=== PATIENT | male | born 1975 ===

== ENCOUNTER 2016-07-02 18:43 | Emergency (ER) | payer OTHER ==
[2016-07-02 18:48] VITALS: BP 135/90
--- NOTE | 2016-07-02 19:27 | Emergency Department Report ---
- General Chief Complaint: Skin/Abscess/Foreign Body Stated Complaint: KNOT ON RT LEG Time Seen by Provider: 07/02/16 19:23 Source: patient, family Mode of arrival: Ambulatory Limitations: No Limitations - History of Present Illness Initial Comments: 40-year-old male significant past medical history presents with complaint of small warm tender area to the right lateral calf region. Patient states that approximately a day ago he saw a pimple on his right calf burst it at home in bathroom and area became progressively redder and more sensitive and painful. Patient denies any fever or chills no difficulty walking denies any deep tenderness and calf pain is strictly superficial on skin. Visibly pointing to well-demarcated red area on the superficial skin right lateral calf region Onset/Timin -: days(s) Location: other (RLE, right mid calf region) Extremity Location: Right: Lower Leg 1 - small area of cellulitis, about 5cm diameter, erythematous, painful to touch, well demarcated Place: home Patient Tetanus UTD: Yes Associated Symptoms: none Treatments Prior to Arrival: cold therapy - Related Data Previous Rx's Medication Instructions Recorded Last Taken Type Cephalexin [Keflex] 500 mg PO Q12HR #14 cap 07/02/16 Unknown Rx Ibuprofen [Motrin] 600 mg PO Q8H PRN #25 tablet 07/02/16 Unknown Rx Sulfamethoxazole/Trimethoprim 1 each PO BID #14 tablet 07/02/16 Unknown Rx [Bactrim DS TAB] Allergies Allergy/AdvReac Type Severity Reaction Status Date / Time No Known Allergies Allergy Unverified 07/02/16 18:45 ED Review of Systems ROS: Stated complaint: KNOT ON RT LEG Other details as noted in HPI ED Past Medical Hx - Past Medical History Previous Medical History?: No - Surgical History Past Surgical History?: No - Social History Smoking Status: Current Every Day Smoker Substance Use Type: None - Medications Home Medications: Home Medications Medication Instructions Recorded Confirmed Last Taken Type Cephalexin [Keflex] 500 mg PO Q12HR #14 cap 07/02/16 Unknown Rx Ibuprofen [Motrin] 600 mg PO Q8H PRN #25 tablet 07/02/16 Unknown Rx Sulfamethoxazole/Trimethoprim 1 each PO BID #14 tablet 07/02/16 Unknown Rx [Bactrim DS TAB] ED Physical Exam - General Limitations: No Limitations General appearance: alert, in no apparent distress - Head Head exam: Present: atraumatic, normocephalic - Eye Eye exam: Present: normal appearance, PERRL, EOMI - ENT ENT exam: Present: mucous membranes moist - Neck Neck exam: Present: normal inspection - Respiratory Respiratory exam: Present: normal lung sounds bilaterally. Absent: respiratory distress - Cardiovascular Cardiovascular Exam: Present: regular rate, normal rhythm. Absent: systolic murmur, diastolic murmur, rubs, gallop - GI/Abdominal GI/Abdominal exam: Present: soft, normal bowel sounds - Rectal Rectal exam: Present: deferred - Extremities Exam Extremities exam: Present: normal inspection - Expanded Lower Extremity Exam Right Hip exam: Present: normal inspection, full ROM Upper Leg exam: Present: normal inspection, full ROM Knee exam: Present: normal inspection, full ROM Lower Leg exam: Present: full ROM, tenderness (small well demarcated 5cm area of induration right mid lateral calf region, palpable induration but no fluctuance), erythema Ankle exam: Present: normal inspection, full ROM - Back Exam Back exam: Present: normal inspection - Neurological Exam Neurological exam: Present: alert, oriented X3 - Psychiatric Psychiatric exam: Present: normal affect, normal mood - Skin Skin exam: Present: warm, dry, intact, normal color. Absent: rash ED Course Vital Signs 07/02/16 18:45 Temperature 98.4 F Pulse Rate 90 Respiratory 18 Rate Blood Pressure 135/90 O2 Sat by Pulse 97 Oximetry ED Medical Decision Making - Medical Decision Making A/P: RLE cellulitis 1- Bactrim and keflex BID x 7 days 2- Motrin PRN for pain 3- I did bedside US using flat probe to search for any discreet pockets of pus/ anechoic or hypoechoic areas underneath skin where cellulitis present, none seen. No indication for I&D at this time. 4- I advised pt to return to the ED if redness/erythema/induration spreads beyond marked borders or if pain worsens despite ABX and NSIAD use. Pt expressed clear understanding of instructions. Pt does no have PMD, will refer him to one. Critical care attestation.: If time is entered above; I have spent that time in minutes in the direct care of this critically ill patient, excluding procedure time. ED Disposition Clinical Impression: Cellulitis of right lower extremity Disposition: DISCHARGED TO HOME OR SELFCARE Is pt being admited?: No Does the pt Need Aspirin: No Condition: Stable Instructions: Cellulitis (ED) Prescriptions: Cephalexin [Keflex] 500 mg PO Q12HR #14 cap Ibuprofen [Motrin] 600 mg PO Q8H PRN #25 tablet PRN Reason: Pain Sulfamethoxazole/Trimethoprim [Bactrim DS TAB] 1 each PO BID #14 tablet Referrals: SHEREE THORNTON MD [Staff Physician] - 3-5 Days [facility] [Outside] - 3-5 Days Forms: Accompanied Note Time of Disposition: 19:28
== END 2016-07-02 19:58 | disposition home or self-care (01) ==
LOC: ED 18:43
DX: L03.115 Cellulitis of right lower limb (principal); F17.200 Nicotine dependence, unspecified, uncomplicated
CPT/HCPCS: 99282

== ENCOUNTER 2016-07-08 16:30 | Emergency (ER) | payer OTHER ==
[2016-07-08 16:50] VITALS: BP 149/90
[2016-07-08] MEDS ORDERED: MOTRIN PO ONE (17:21)
[2016-07-08 17:58] LABS: Anion Gap 19 mmol/L; BUN/Creatinine Ratio 10.83; Blood Urea Nitrogen 13 mg/dL (9-20); Calcium 8.9 mg/dL (8.4-10.2); Carbon Dioxide 25 mmol/L (22-30); Chloride 95.7 mmol/L (98-107); Glucose 80 mg/dL (75-100); Potassium 4.8 mmol/L (3.6-5.0); Sodium 135 mmol/L (137-145)
[2016-07-08 18:03] LABS: Hematocrit 43.8 % (35.5-45.6); Hemoglobin 14.8 gm/dl (11.8-15.2); Mean Corpuscular HGB Conc 34 % (32-34); Mean Corpuscular Hemoglobin 30 pg (28-32); Mean Corpuscular Volume 89 fl (84-94); Platelet Count 307 K/mm3 (140-440); Red Cell Distribution Width 13.1 % (13.2-15.2); White Blood Count 9.5 K/mm3 (4.5-11.0)
--- NOTE | 2016-07-08 18:11 | Emergency Department Report ---
<JOHANNE KELSEY - Last Filed: 07/08/16 19:33> - General Chief complaint: Skin/Abscess/Foreign Body Stated complaint: RT LEG INFECTION Time Seen by Provider: 07/08/16 16:55 - Related Data Previous Rx's Medication Instructions Recorded Last Taken Type Cephalexin [Keflex] 500 mg PO Q12HR #14 cap 07/02/16 Unknown Rx Ibuprofen [Motrin] 600 mg PO Q8H PRN #25 tablet 07/02/16 Unknown Rx Sulfamethoxazole/Trimethoprim 1 each PO BID #14 tablet 07/02/16 Unknown Rx [Bactrim DS TAB] Acetaminophen/Codeine [Tylenol #3] 1 tab PO Q6H PRN #14 tab 07/08/16 Unknown Rx Clindamycin [Clindamycin CAP] 600 mg PO BID #20 capsule 07/08/16 Unknown Rx Allergies Allergy/AdvReac Type Severity Reaction Status Date / Time No Known Allergies Allergy Unverified 07/02/16 18:45 Abscess Boil HPI - HPI Chief Complaint: Skin/Abscess/Foreign Body Stated Complaint: RT LEG INFECTION Time Seen by Provider: 07/08/16 16:55 Home Medications: Previous Rx's Medication Instructions Recorded Last Taken Type Cephalexin [Keflex] 500 mg PO Q12HR #14 cap 07/02/16 Unknown Rx Ibuprofen [Motrin] 600 mg PO Q8H PRN #25 tablet 07/02/16 Unknown Rx Sulfamethoxazole/Trimethoprim 1 each PO BID #14 tablet 07/02/16 Unknown Rx [Bactrim DS TAB] Acetaminophen/Codeine [Tylenol #3] 1 tab PO Q6H PRN #14 tab 07/08/16 Unknown Rx Clindamycin [Clindamycin CAP] 600 mg PO BID #20 capsule 07/08/16 Unknown Rx Allergies/Adverse Reactions: Allergies Allergy/AdvReac Type Severity Reaction Status Date / Time No Known Allergies Allergy Unverified 07/02/16 18:45 ED Review of Systems ROS: Stated complaint: RT LEG INFECTION Other details as noted in HPI ED Past Medical Hx - Medications Home Medications: Home Medications Medication Instructions Recorded Confirmed Last Taken Type Cephalexin [Keflex] 500 mg PO Q12HR #14 cap 07/02/16 Unknown Rx Ibuprofen [Motrin] 600 mg PO Q8H PRN #25 tablet 07/02/16 Unknown Rx Sulfamethoxazole/Trimethoprim 1 each PO BID #14 tablet 07/02/16 Unknown Rx [Bactrim DS TAB] Acetaminophen/Codeine [Tylenol #3] 1 tab PO Q6H PRN #14 tab 07/08/16 Unknown Rx Clindamycin [Clindamycin CAP] 600 mg PO BID #20 capsule 07/08/16 Unknown Rx ED Course Vital Signs 07/08/16 07/08/16 07/08/16 16:42 17:33 19:12 Temperature 98.9 F Pulse Rate 103 H 73 Respiratory 18 16 18 Rate Blood Pressure 149/90 Blood Pressure 149/90 [Left] O2 Sat by Pulse 97 97 Oximetry - I & D Right Lower Lateral Distal Leg Type of Procedure: Simple Blade Size: 11 I & D Procedure: betadine prep, sterile drapes applied, sterile dressing applied Progress: Patient positioned appropriately, 15cc lidocaine without epinephrine was used as a local anesthetic. #11 blade scalpal used for single incision. Additional local anesthetic injected into surrounding viable tissue prior to blunt dissection of loculated adhesions. Copius drainage of pus (culture obtained). Wound packed with iodoform gauze. Procedure tolerated without complications. Wound dressed with sterile 4x4 guaze and paper tape. Pt tolerated procedure well. ED Medical Decision Making - Lab Data Result diagrams: 07/08/16 17:31 07/08/16 17:31 Critical care attestation.: If time is entered above; I have spent that time in minutes in the direct care of this critically ill patient, excluding procedure time. ED Disposition Clinical Impression: Abscess of leg, right, Cellulitis and abscess of leg Disposition: DISCHARGED TO HOME OR SELFCARE Condition: Stable Instructions: Cellulitis (ED), Abscess (ED) Additional Instructions: Return to ED in 2 days for inspection and iodoform removal Take antibiotics as prescribed. Prescriptions: Acetaminophen/Codeine [Tylenol #3] 1 tab PO Q6H PRN #14 tab PRN Reason: Pain Clindamycin [Clindamycin CAP] 600 mg PO BID #20 capsule Referrals: [facility]Outside] - 3-5 Days [facility] [Outside] - 3-5 Days [facility], [Primary Care Provider] - 3-5 Days Forms: Work/School Release Form(ED) <ANA CHOUDHARY - Last Filed: 07/14/16 23:52> - General Source: patient Mode of arrival: Ambulatory Limitations: No Limitations - History of Present Illness Initial comments: 40-year-old male comes in for a ball on his right calf. Patient was recently seen on 07/02/2016 and placed on Bactrim and Keflex for cellulitis. Patient comes in today for worsening of the bowl increased redness and drainage and painful to walk. Patient reports he has been compliant in taking all medications. Has no past medical history currently takes no meds besides the antibiotics as prescribed. ED Past Medical Hx - Past Medical History Previous Medical History?: No - Surgical History Past Surgical History?: No - Social History Smoking Status: Current Some Day Smoker Substance Use Type: None ED Physical Exam - General Limitations: No Limitations General appearance: alert, in no apparent distress - Head Head exam: Present: atraumatic, normocephalic - Skin Skin exam: Present: warm, dry, intact, erythema (lesion that's very tender to touch and warm to feel. Located on the right lateral aspect of the lower leg) ED Medical Decision Making - Lab Data Result diagrams: 07/08/16 17:31 07/08/16 17:31 - Radiology Data Radiology results: image reviewed FINAL REPORT EXAM: US EXTREMITY NONVASCULAR RT HISTORY: r/o abscess TECHNIQUE: Multiple grayscale sonographic images were obtained of the superficial soft tissues of the right calf. PRIORS: None. FINDINGS: There is a complex collection in the subcutaneous tissues in the area of interest that measures approximately 1.5 x 0.8 x 2.1 centimeters. IMPRESSION: 1. Heterogeneous collection in the subcutaneous tissues may represent phlegmon or abscess given the history provided. Transcribed By: KWAKU Dictated By: VIKRAM GORDON MD Electronically Authenticated By: VIKRAM GORDON MD Signed Date/Time: 07/08/161956 - Medical Decision Making Patient is given ibuprofen 800 mg. We will do an ultrasound of the leg. Based on results of the ultrasound would decide if patient is to be admitted for outpatient medication failure. ED Disposition Is pt being admited?: No Does the pt Need Aspirin: No
--- NOTE | 2016-07-08 19:00 | Ultrasound Report ---
FINAL REPORT EXAM: US EXTREMITY NONVASCULAR RT HISTORY: r/o abscess TECHNIQUE: Multiple grayscale sonographic images were obtained of the superficial soft tissues of the right calf. PRIORS: None. FINDINGS: There is a complex collection in the subcutaneous tissues in the area of interest that measures approximately 1.5 x 0.8 x 2.1 centimeters. IMPRESSION: 1. Heterogeneous collection in the subcutaneous tissues may represent phlegmon or abscess given the history provided.
[2016-07-08] MEDS ORDERED: CLEOCIN PO ONE (19:11)
[2016-07-08] MEDS ORDERED: XYLOCAINE 1% 20 mL INFILTRATI ONE (19:13)
== END 2016-07-08 20:25 | disposition home or self-care (01) ==
LOC: ED 16:30
DX: L03.115 Cellulitis of right lower limb (principal); F17.200 Nicotine dependence, unspecified, uncomplicated
CPT/HCPCS: 36415; 80048; 85027; 87116; 87186